=== PATIENT | female | born 1935 | race Caucasian/White ===

== ENCOUNTER → 2018-04-06 14:39 | Outpatient (CLI) | payer MEDICARE, SELFPAY ==
--- NOTE | 2018-04-06 14:41 | ECHOD_ITS ---
Reason For Study: MV DISORDER, MVP, MV REPAIR Procedure This was a 2D Doppler, Color Flow transthoracic echocardiogram. The exam was of adequate technical quality. Exam performed in department. Left Ventricle Normal LV size. Left ventricular systolic function is normal. The estimated ejection fraction is 60 %. Transmitral diastolic flow velocities suggest moderate (stage 2) diastolic dysfunction (pseudonormal pattern). No regional wall motion abnormalities noted. Right Ventricle Normal RV size. Normal systolic function. Atria The left atrium is mildly enlarged. Normal right atrium. No doppler evidence for ASD. Mitral Valve Mild diffuse mitral valve thickening. An annuloplasty ring is noted in the mitral position. MIld (1+) transvalvular insufficiency of the mitral valve. Tricuspid Valve Normal tricuspid valve. Mild tricuspid valve insufficiency. Right ventricular systolic pressure estimated to be 28 mmHg. Aortic Valve Trisinus/trileaflet aortic valve. Normal aortic valve. Pulmonic Valve The pulmonic valve is not well visualized. Mild (1+) pulmonic valve insufficiency. Great Vessels Normal sized aortic root. Pericardium/Pleural No pericardial effusion. MMode/2D Measurements & Calculations LVIDd: 4.0 cm IVSd: 1.0 cm Ao root diam: 2.8 cm LVIDs: 2.7 cm LVPWd: 1.1 cm LA dimension: 4.1 cm RVDd: 2.8 cm FS: 34.3 % LAV(MOD-bp): 73.7 ml LA A4 area: 21.9 cm2 RA A4 area: 14.0 cm2 LAV(MOD-bp) Indexed: 40.0 ml/m2 LAV(MOD-sp2): 67.2 ml LAV(MOD-sp4): 73.9 ml Time Measurements MV dec time: 0.41 sec Doppler Measurements & Calculations MV E max vito: 134.8 cm/sec Lat Peak E' Vito: 10.4 cm/sec Med Peak E' Vito: 8.3 cm/sec MV A max vito: 74.1 cm/sec E/E' lat: 13.0 E/E' med: 16.3 MV E/A: 1.8 MV V2 max: 136.0 cm/sec MV P1/2t max vito: 130.4 cm/sec Ao V2 max: 142.6 cm/sec MV max P.4 mmHg Ao max P.1 mmHg MV V2 mean: 72.3 cm/sec MV mean P.4 mmHg MV V2 VTI: 43.3 cm LV V1 max: 77.9 cm/sec PA V2 max: 83.8 cm/sec PI dec slope: 142.4 cm/sec2 LV V1 max P.4 mmHg TR max vito: 246.9 cm/sec TR max P.6 mmHg Interpretation Summary Left ventricular systolic function is normal. The estimated ejection fraction is 60 %. The left atrium is mildly enlarged. An annuloplasty ring is noted in the mitral position. Mild diffuse mitral valve thickening. MIld (1+) transvalvular insufficiency of the mitral valve. Mild tricuspid valve insufficiency. Mild (1+) pulmonic valve insufficiency. Right ventricular systolic pressure estimated to be 28 mmHg. Transmitral diastolic flow velocities suggest diastolic dysfunction (pseudonormal pattern). Ordering Physician: Terence Kim Referring Physician: Kenyetta Linares Performed By: Lucretia Foss RDCS, RVT
== END ==
PROVIDERS: Family Provider Internal Medicine; PCP Internal Medicine; Visit Provider Internal Medicine Cardiovascular Disease
DX: Z98.890 Other specified postprocedural states (principal)
CPT/HCPCS: 93306

== ENCOUNTER → 2018-07-27 12:13 | Outpatient (CLI) | payer MEDICARE, SELFPAY ==
--- NOTE | 2018-07-27 12:14 | BI_ITS ---
MAMMOGRAPHY - BILATERAL SCREENING REASON FOR EXAM: Female, 83 years old. Routine annual screening examination. PERTINENT HISTORY: Sister with breast cancer. Remote right and left stereotactic breast biopsies. TECHNIQUE: Digital bilateral breast mitzi (3D mammographic acquisition) in the CC and MLO projections. 2-D mediolateral oblique (MLO) and craniocaudad (CC) views of both breasts were obtained. CAD: Full Field Digital Mammography with Computer Added Detection was performed. COMPARISON: Comparison is made with prior study dated July 24, 2017 and July 23, 2016. FINDINGS: Breast Composition: There are scattered areas of fibroglandular density. There are no dominant masses or suspicious calcifications. Stable small benign-appearing bilateral axillary lymph nodes. A tissue clip marker is seen in the mid retroareolar region of the left breast as well as in the mid deep portion of the right breast. No other significant abnormalities are identified. There has been no significant change since the prior study. BI/SCREENING MAMM (CAD), BILAT IMPRESSION: Stable bilateral screening mammogram. Yearly follow-up mammogram recommended. (A) ASSESSMENT CATEGORY: BIRADS Category 2: Benign. A letter regarding these results will be sent to the patient by the facility within 30 days. Approximately 10% of breast cancers are not detected by mammography. A normal mammogram should not delay biopsy of a clinically suspicious abnormality. [id number] Electronically Signed: Adrián Devries MD at 14:14 EDT Tel [phone], Service support ,
--- NOTE | 2018-07-27 12:20 | BD_ITS ---
STUDY: DUAL ENERGY X-RAY ABSORPTIOMETRY / DXA REASON FOR EXAM: Female, 83 years old. The patient is postmenopausal. Loss of height. TECHNIQUE: Bone Mineral Density (BMD) measurements of lumbar spine and bilateral hips were obtained. COMPARISON: Comparison is made with prior study dated February 27, 2015. FINDINGS: Lumbar Spine (L1-L4): g/cm2 (1.060) / T-score (-1.0) / Z-score (0.9) Findings are suggestive of osteopenia with a low fracture risk. Left Femur Total: g/cm2 (0.813) / T-score (-1.5) / Z-score (0.5) Left Femoral Neck: g/cm2 (0.810) / T-score (-1.6) / Z-score (0.6) Right Femur Total: g/cm2 (0.797) / T-score (-1.7) / Z-score (0.4) Right Femoral Neck: g/cm2 (0.756) / T-score (-2.0) / Z-score (0.2) The T-Scores on the most recent prior examination were: Lumbar Spine (L1-L4): There has been worsening of bone density since the previous examination. Left Femur Total: which represents a worsening of 5.2%. Right Femur Total: which represents a worsening of 6.6%. BD/Dexa Bone Density Study IMPRESSION: The patient is considered osteopenic as outlined below according to World Th[place] Organization (WHO) criteria with a moderate fracture risk. There has been worsening of bone density since the previous examination. Reference Information: The T-score is the number of standard deviations above or below the standard which is normal for young adults at their peak bone mineral density. The World Health Organization (WHO) interprets the T-scores as follows: Above -1 Normal bone density Between -1 and -2.5 Osteopenia Equal to / or below -2.5 Osteoporosis As a practical clinical guideline, osteopenia may be graded as follows: Mild -1 through -1.5 Moderate -1.6 through -2.0 Severe -2.1 through -2.4 The Z-score is the number of standard deviations above or below age-matched controls. A Z-score of less than -1.5 would be considered abnormal. References: 1. NIH Osteoporosis and Related Bone Diseases http://www.osteo.org 2. International Society for Clinical Densitometry http://www.iscd.org 3. National Osteoporosis Foundation http://www.nof.org Electronically Signed: Adrián Devries MD at 15:54 EDT Tel [phone], Service support ,
== END ==
PROVIDERS: Family Provider Internal Medicine; PCP Internal Medicine; Referring Provider Internal Medicine; Visit Provider Internal Medicine
DX: Z12.31 Encounter for screening mammogram for malignant neoplasm of breast (principal); Z78.0 Asymptomatic menopausal state
CPT/HCPCS: 77063; 77067; 77080

== ENCOUNTER → 2019-05-24 06:39 | Outpatient (CLI) | payer MEDICARE, SELFPAY ==
[2019-04-18 15:02] VITALS: BMI 28.4
--- NOTE | 2019-05-24 09:28 | STRESSREP ---
Stress Test Report Date: 05-24-19 Procedure: Exercise tolerance test/imaging study Indications: Shortness of breath/dyspnea; fatigue; status post mitral valve repair; history of atrial fibrillation Consent: Per the patient Procedure: The patient exercised on a Baldomero protocol for 6 minutes completing Stage II achieving a peak heart rate of 126 bpm (91 % predicted maximal heart rate) with a peak blood pressure 186/72 mmHg and a peak MET capacity of 7 METs. The baseline ECG demonstrated normal sinus rhythm. The peak exercise ECG demonstrated no obvious ECG changes. There were occasional PVCs pretest, during exercise, and recovery-multi form; repetitive PACs (atrial couplets/quadruplets) during exercise and occasional PACs during recovery. The functional capacity was considered good. There was no complaint of chest discomfort during exercise or recovery. The examination was discontinued secondary to leg discomfort and dyspnea. Impression: 1. Technically adequate (percent predicted maximal heart rate greater than 85%) exercise tolerance test 2. Peak exercise ECG demonstrated no obvious ECG changes 3. There were occasional PVCs pretest, during exercise, and recovery-multiform; repetitive PACs (atrial couplets/quadruplets) during exercise and occasional PACs during recovery 4. Nuclear images pending Myocardial perfusion imaging study: Technique: The patient was injected with 11.6 mCi of technetium 99m Cardiolite and subsequently rest SPECT Cardiolite nuclear imaging was obtained in the horizontal long, vertical long, and short axis views. The patient exercised on a Baldomero protocol for 6 minutes completing Stage II achieving a peak heart rate of 126 bpm (91 % predicted maximal heart rate) with a peak blood pressure 186/72 mmHg and a peak MET capacity of 7 METs. The patient was injected with 33.3 mCi of technetium 99m Cardiolite and subsequently stress SPECT Cardiolite nuclear imaging was obtained in the horizontal long, vertical long, and short axis views. A gated Cardiolite study at peak stress was obtained. Interpretation: Rest and stress SPECT Cardiolite nuclear imaging status post realignment, normalization, and attenuation correction, demonstrates the appearance of relative uniform tracer uptake and myocardial perfusion appearing within normal limits. There is end systolic thickening and brightening. The gated Cardiolite study demonstrates myocardial thickening and inward wall motion. The reported LVEF is 71 %. Impression: 1. Rest and stress SPECT Cardiolite nuclear imaging demonstrate relative uniform tracer uptake and myocardial perfusion appearing within normal limits. 2. The gated Cardiolite study reports an LVEF of 71 %. This note was generated with [employer] software. It may contain incorrect words, spelling, and punctuation that were not noted in checking the note before signing.
== END ==
PROVIDERS: Family Provider Internal Medicine; PCP Internal Medicine; Referring Provider Internal Medicine Cardiovascular Disease; Visit Provider Internal Medicine Cardiovascular Disease
DX: R06.02 Shortness of breath (principal); I97.89 Other postprocedural complications and disorders of the circulatory system, not elsewhere classified; I48.91 Unspecified atrial fibrillation; R53.83 Other fatigue; I49.49 Other premature depolarization; E78.5 Hyperlipidemia, unspecified; I10 Essential (primary) hypertension; Z98.890 Other specified postprocedural states; I49.3 Ventricular premature depolarization
CPT/HCPCS: 78452; 93017; A9500; A4216

== ENCOUNTER → 2020-06-26 07:44 | Outpatient (CLI) | payer MEDICARE, SELFPAY ==
[2020-06-08 10:15] VITALS: BMI 28.6
--- NOTE | 2020-06-26 07:45 | ECHOD_ITS ---
Reason For Study: s/p MV Repair Procedure This was a 2D Doppler, Color Flow transthoracic echocardiogram. The exam was of adequate technical quality. Exam performed in department. Left Ventricle Normal LV size. Left ventricular systolic function is normal. The estimated ejection fraction is 60 %. No regional wall motion abnormalities noted. Right Ventricle Normal RV size. Normal systolic function. Atria The left atrium is mildly enlarged. Normal right atrium. No doppler evidence for ASD. Mitral Valve Mild diffuse mitral valve thickening. An annuloplasty ring is noted in the mitral position. MIld (1+) transvalvular insufficiency of the mitral valve. Tricuspid Valve Normal tricuspid valve. Trivial tricuspid valve insufficiency. Right ventricular systolic pressure estimated to be 28 mmHg. Aortic Valve Trisinus/trileaflet aortic valve. Mild focal aortic valve calcification. Pulmonic Valve The pulmonic valve is not well visualized. Mild (1+) pulmonic valve insufficiency. Great Vessels The aortic root is not well visualized. Pericardium/Pleural No pericardial effusion. MMode/2D Measurements & Calculations LVIDd: 4.0 cm IVSd: 1.1 cm LA dimension: 4.1 cm LVIDs: 2.6 cm LVPWd: 1.0 cm FS: 34.9 % LAV(MOD-bp): 51.5 ml LA A4 area: 16.8 cm2 RA A4 area: 15.4 cm2 LAV(MOD-bp) Indexed: 27.2 ml/m2 LAV(MOD-sp2): 41.1 ml LAV(MOD-sp4): 52.9 ml Time Measurements MV dec time: 0.51 sec Doppler Measurements & Calculations MV E max vito: 129.4 cm/sec Lat Peak E' Vito: 7.8 cm/sec Med Peak E' Vito: 8.8 cm/sec MV A max vito: 78.5 cm/sec E/E' lat: 16.6 E/E' med: 14.7 MV E/A: 1.6 MV V2 max: 138.7 cm/sec MV P1/2t max vito: 140.6 cm/sec Ao V2 max: 124.6 cm/sec MV max P.7 mmHg MV P1/2t: 121.9 msec Ao max P.2 mmHg MV V2 mean: 81.7 cm/sec MV dec slope: 338.0 cm/sec2 MV mean P.0 mmHg MVA(P1/2t): 1.8 cm2 MV V2 VTI: 41.1 cm LV V1 max: 66.9 cm/sec MR max vito: 525.1 cm/sec PA V2 max: 82.8 cm/sec LV V1 max P.8 mmHg MR max P.3 mmHg MR mean vito: 450.1 cm/sec MR mean P.2 mmHg MR VTI: 212.6 cm PI end-d vito: 135.3 cm/sec TR max vito: 248.9 cm/sec TR max P.8 mmHg Interpretation Summary Left ventricular systolic function is normal. The estimated ejection fraction is 60 %. The left atrium is mildly enlarged. An annuloplasty ring is noted in the mitral position. Mild diffuse mitral valve thickening. MIld (1+) transvalvular insufficiency of the mitral valve. Trivial tricuspid valve insufficiency. Mild focal aortic valve calcification. Mild (1+) pulmonic valve insufficiency. Right ventricular systolic pressure estimated to be 28 mmHg. Transmitral diastolic flow velocities suggest diastolic dysfunction (pseudonormal pattern). Ordering Physician: Terence Kim Referring Physician: Kenyetta Linares M.D. Performed By: Isaac Diaz RCS
== END ==
PROVIDERS: PCP Internal Medicine; Referring Provider Internal Medicine Cardiovascular Disease; Visit Provider Internal Medicine Cardiovascular Disease
DX: Z95.2 Presence of prosthetic heart valve (principal)
CPT/HCPCS: 93306

== ENCOUNTER 2021-07-22 01:36 | Emergency (ER) | payer MEDICARE, SELFPAY ==
[2021-07-22 01:37] VITALS: BP 158/92; PULSE 66; RESP 18; TEMP 36.3; O2SAT 97; BMI 27.4
--- NOTE | 2021-07-22 02:10 | EDS_ITS ---
HPI History of Present Illness Chief Complaint: Allergic Reaction Informant: patient Narrative Narrative: 86-year-old female states that at approximately 11:00 yesterday she was stung by a bee on her right hand. She notes some swelling and erythema on the dorsum of her right hand. She denies any systemic symptoms. No home treatment other than ice which she states made her hand hurt more. She states that tonight it is painful for her. No Tylenol or Motrin at home. [facility] Medical History (Updated 07/22/21 @ 02:[address] Ashish Morfin DO) Chronic fatigue syndrome Essential hypertension History of mitral valve disorder History of pleural effusion Hyperlipidemia Hypertension Non-rheumatic mitral regurgitation Nonrheumatic mitral (valve) prolapse Paroxysmal atrial tachycardia Postoperative atrial fibrillation Home Medications aspirin 81 mg PO DAILY@0800 05/30/16 [History Last Taken 08/12/16] losartan 50 mg tablet 50 mg PO BID #180 tab 11/01/20 [Rx Last Taken Unknown] amlodipine 2.5 mg tablet 2.5 mg PO DAILY #90 tab 12/10/20 [Rx Last Taken Unknown] mecobalamin (vitamin B12) 10,000 mcg solution for injection mcg IM MONTHLY ea 12/10/20 [History Last Taken Unknown] metoprolol tartrate 50 mg tablet 50 mg PO BID #180 tab 12/10/20 [Rx Last Taken Unknown] amoxicillin 500 mg tablet 2,000 mg PO .COMPLEX #4 tab 04/10/21 [Rx Last Taken Unknown] Allergy/AdvReac Type Severity Reaction Status Date / Time Latex, Natural Rubber Allergy Hives Verified 12/10/20 10:03 Sulfa (Sulfonamide Allergy Hives Verified 12/10/20 10:03 Antibiotics) Family History Brother CAD (coronary artery disease) Hx of CABG Brother History of permanent cardiac pacemaker placement Surgical History History of mitral valve repair (~02/07/11) Social History Smoking Status: Never smoker alcohol intake: never substance use type: does not use ROS ROS ED Constitutional Constitutional ED: Denies chills or weight loss Eyes Eyes: Denies change in vision or diplopia ENT ENT ED: Denies ear pain, rhinorrhea or sore throat Cardiovascular Cardiovascular: Denies chest pain, orthopnea, palpitations or racing heartbeat Respiratory/Chest Respiratory/Chest: Denies cough, dyspnea or orthopnea Gastrointestinal Gastrointestinal: Denies abdominal pain, diarrhea, nausea or vomiting Genitourinary Genitourinary ED: Denies dysuria, hematuria or urinary frequency Musculoskeletal Musculoskeletal: Denies arthralgias or myalgias Integumentary Reports rash and other; Denies abscess Neurologic Neurologic: Denies headache(s) or weakness Psychiatric Psychiatric: Denies anxiety, depression, suicidal ideation or suicidal thoughts Endocrine Endocrinology: Denies polydipsia, polyphagia or polyuria Allergic/Immunologic Allergic/Immunologic ED: Denies mouth swelling, tongue swelling or urticaria EXAM Physical Exam Const Vital Signs: 07/22/21 01:37 Temperature 97.4 F L Temperature Source Temporal Pulse Rate 66 Respiratory Rate 18 Blood Pressure 158/92 H Blood Pressure Mean 114 Pulse Ox 97 Oxygen Delivery Method Room Air Positive well nourished and well developed General Appearance ED: well developed HEENT Reports normocephalic, head/scalp atraumatic and moist mucous membranes Eyes PERRL and EOMs intact bilaterally Neck no lymphadenopathy, supple and no JVD Resp normal respiratory effort and clear to auscultation bilaterally Cardio regular rate, regular rhythm and no murmurs GI normal to inspection, nondistended, normoactive bowel sounds and non-tender Palpation: soft Back/Spine no CVA tenderness and normal ROM Extremity normal to inspection General Extremety ED: Negative for edema General Extremity: Negative for edema Neuro oriented x3 and CN's II-XII intact bilaterally Sensorium / Orientation: alert Motor Exam: strength 5/5 throughout Psych mental status grossly normal Mood & Affect: Negative for depressed or tearful Skin no wounds Skin Narrative: Located on the dorsum of the right hand along the third and four th MCP joints and onto the associated fingers is some area of mild erythema and mild swelling. No evidence of secondary infection at this time it appears to be more of a local reaction MDM MDM MDM Narrative Medical decision making narrative: I will give the patient Benadryl and Pepcid also give her Motrin for pain. Recommend continued Benadryl and Pepcid at home. Patient was specifically advised that tomorrow her hand may be more swollen and red than tonight. Discharge Plan Triage Chief Complaint: Allergic Reaction ED Provider: Ashish Morfin Dx/Rx/DC Orders Clinical Impression: Local reaction to bee sting Instructions: ED Insect Sting, Local Reaction Prescriptions: No Action mecobalamin (vitamin B12) 10,000 mcg recon soln IM MONTHLY RF: 0 amlodipine 2.5 mg tablet 2.5 mg PO DAILY Qty: 90 RF: 3 metoprolol tartrate 50 mg tablet 50 mg PO BID Qty: 180 RF: 4 aspirin 81 MG tablet,chewable 81 mg PO DAILY@0800 RF: 0 losartan 50 mg tablet 50 mg PO BID Qty: 180 RF: 3 amoxicillin 500 mg tablet 2,000 mg PO .COMPLEX Qty: 4 RF: 4 Primary Care Provider: Kenyetta Linares Referrals: Kenyetta Linares DO [Primary Care Provider] - As Needed Activity Restrictions/Additional Instructions: I would recommend Benadryl 25 mg every 6-8 hours and Pepcid 20 mg twice a day until symptoms have resolved you may also use a topical Benadryl cream if you find that the oral medication is causing drowsiness Disposition Disposition: Home, Self Care
[2021-07-22] MEDS: Ibuprofen 600 MG Tablet PO (02:24)
[2021-07-22] MEDS: DiphenhydrAMINE 25 MG Capsule PO (02:24)
[2021-07-22] MEDS: Famotidine 20 MG Tablet PO (02:24)
== END 2021-07-22 02:38 | disposition home or self-care (01) ==
LOC: ED 02:33
PROVIDERS: Emergency Provider Emergency Medicine; PCP Internal Medicine
DX: T63.441A Toxic effect of venom of bees, accidental (unintentional), initial encounter (principal); E78.5 Hyperlipidemia, unspecified; I10 Essential (primary) hypertension; I34.1 Nonrheumatic mitral (valve) prolapse; I48.91 Unspecified atrial fibrillation; R53.82 Chronic fatigue, unspecified; I47.1 Supraventricular tachycardia; Z79.82 Long term (current) use of aspirin
CPT/HCPCS: 99283

== ENCOUNTER → 2021-10-11 12:33 | Outpatient (CLI) | payer MEDICARE, SELFPAY | PROVIDERS: PCP Internal Medicine; Referring Provider Urology; Visit Provider Urology | DX: N39.0 Urinary tract infection, site not specified (principal) | CPT/HCPCS: 87077; 87086; 87088; 87186 ==

== ENCOUNTER 2021-10-21 15:34 | Observation (INO) | payer MEDICARE, SELFPAY ==
[2021-10-14 10:45] LABS: Hematocrit 42.1 % (37-47); Hemoglobin 14.3 g/dL (12.0-15.0); Mean Corpuscular Hgb 32.9 pg (27.0-32.0); Platelet Count 247 K/mm3 (150-450); RBC Distribution Width CV 12.9 % (11.6-14.6); RBC Distribution Width SD 46.2 fl (35.1-43.9); Red Blood Count 4.34 M/mm3 (4.2-5.4); White Blood Count 7.3 K/mm3 (4.4-11.0)
[2021-10-14 10:59] LABS: Anion Gap 7 (5-15); BUN 15 mg/dL (7-18); BUN/Creat Ratio 16.8 RATIO (10-20); Calcium,Total 9.4 mg/dL (8.5-10.1); Chloride 103 mmol/L (98-107); EST Glomerular Filtration Rate 64 mL/min (>60); Est Glom Filt Rate - Afr Amer 77 mL/min (>60); Glucose 96 mg/dL (74-106); Sodium Level 135 mmol/L (136-145)
[2021-10-21] VITALS (11 sets, daily range): BP systolic 122–179; BP diastolic 63–89; PULSE 59–83; RESP 16–18; TEMP 35.7–36.7; O2SAT 96–100; BMI 26.9
[2021-10-21] MEDS: Lactated Ringers 1,000 ML 15 ML IV ×2 (11:22→13:01)
--- NOTE | 2021-10-21 11:29 | PCM.OPRPT ---
Problems Associated Problem List Diagnoses (1) Cystocele, midline: (2) Vaginal vault prolapse: Report of Operation Date of Procedure: 10/21/21 Pre-Operative Diagnosis: cystocele, vaginal vault prolapse Post-Operative Diagnosis: same and rectocele Surgery/Procedure Performed:: anterior repair with Dermis, bilateral sacrospinous ligament fixation, posterior repair with dermis, cystoscopy with bilateral ureteral catheterization Surgeon: Christine Morocho Type of Anesthesia: General Estimated Blood Loss (mL): 35cc Description of Procedure: The patient is an 86-year-old female with a cystocele and vaginal vault prolapse. She presents for definitive surgical intervention. She has undergone office cystoscopy and urodynamics in preparation. Informed consent was obtained. The patient was taken to the operating room and placed on the operating room table. Anesthesia monitored the head, neck, airway, IV access and vital signs throughout the case. Once anesthesia was appropriate ministered the patient was placed into dorsal lithotomy Trendelenburg position and was prepped and draped in usual sterile fashion. A 16 Hungarian De Anda catheter was inserted to straight drain and the bladder was emptied. The anterior vaginal wall was isolated and injected submucosally with 1% lidocaine with epinephrine for hydrostatic dissection and hemostatic control. Sharp and blunt dissection was performed until the ischial spines were palpable on both sides the sacrospinous ligaments were freed from surrounding tissues. The Capio device was then used to pass an Ethibond suture through each sacrospinous ligament. It was then brought through the dermis which had been trimmed to length. At this time it was brought through the vaginal mucosa at the apex. The dermis was then sutured into position near the bladder neck and laterally the white line using interrupted 2-0 Vicryl suture. The incision was then closed using running interlocking 2-0 Vicryl. At this time the Ethibond sutures were tied into position and the prolapse was reduced. A distal posterior defect was identified. The submucosa in this area was injected with lidocaine with epinephrine. An incision was made in the mucosa and sharp and blunt dissection was performed until the bowel was pushed away from the mucosa. There was no significant remaining fascial tissue in this area. A piece of leftover dermis was then cut to length and sutured to the rectovaginal fascia on each side covering the defect. The mucosa was then closed over the dermis with running interlocking 2-0 Vicryl. The De Anda catheter was then removed and the cystoscope was positioned into the urinary bladder. The mucosa was visualized in its entirety. There were no areas of hemorrhage or foreign body identified. Bilateral ureteral orifices were seen and each was intubated with a 5 Hungarian whistle-tip catheter without difficulty. There was no evidence of injury or obstruction either side. The cystoscope was then removed and the De Anda catheter was replaced with 10 cc in the balloon. The vagina was packed with vaginal packing and cream. The patient was then awakened and taken the recovery room in good condition. There were no complications during this procedure. Grafts/Implants Used: Dermis Complications None Admit VTE Documentation VTE Present on Admission: Yes VTE Mechan Device Prophylaxis: SCD's VTE Pharm Prophylaxis ordered?: Yes
[2021-10-21] MEDS: Lidocaine 1% /Epi 1:100 (20ml) 20 ML Vial (12:59)
[2021-10-21] MEDS: Lubricating Jelly 60 GM Tube 30 GM (14:01)
--- NOTE | 2021-10-21 17:17 | PCS.PANDOC ---
PANDEMIC DOCUMENTATION INITIATED: Date: 06/10/2021 Time: 190
[2021-10-21] MEDS: Enoxaparin 40 MG/0.4 ML Syringe SC (18:21)
[2021-10-21] MEDS: Dextrose 5%-Lactated Ringers 1,000 ML 100 ML IV (20:48)
[2021-10-21] MEDS: Losartan Potassium 50 MG Tablet PO (20:55)
[2021-10-21] MEDS: Cephalexin 500 MG Capsule PO (20:55)
[2021-10-21] MEDS: Docusate Sodium 100 MG Capsule PO (20:55)
[2021-10-21] MEDS: Metoprolol Tartrate 50 MG Tablet PO (20:56)
[2021-10-22 00:43] VITALS: BP 140/80; PULSE 76; RESP 18; TEMP 36.8; O2SAT 96
[2021-10-22] MEDS: 0.9% Saline Lock 10 ML Syringe IV (00:50)
[2021-10-22] MEDS: Ondansetron 4 MG/2 ML Vial IV (00:50)
[2021-10-22 04:49] VITALS: BP 140/61; PULSE 75; RESP 18; TEMP 36.7; O2SAT 99
[2021-10-22] MEDS: Dextrose 5%-Lactated Ringers 1,000 ML 100 ML IV (04:53)
--- NOTE | 2021-10-22 08:14 | PCM.PROGNOTE ---
Subjective Subjective Doing well. Soup for dinner, out of bed, pain controlled. Objective Data Objective Data Vital Signs: Vital Signs Temp Pulse Resp BP Pulse Ox 98.1 F 75 18 140/61 H 99 10/22/21 04:49 10/22/21 04:49 10/22/21 04:49 10/22/21 04:49 10/22/21 04:49 Oxygen Delivery Method Room Air Weight: 75.6 kg Body Mass Index (BMI) 26.9 Intake & Output: Intake and Output for Last 24 Hours 10/20/21 10/21/21 10/22/21 23:59 23:59 23:59 Intake Total 1530.75 / 1780.75 1308.33 / 1308.33 Output Total 650 / 1000 1525 / 1525 Balance 880.75 / 780.75 -216.67 / -216.67 Lab / Micro Data Result Diagrams: 10/14/21 10:00 10/14/21 10:00 Physical Exam Const alert, oriented x3 and no apparent distress HEENT normocephalic, head/scalp atraumatic and external ears normal Nose: external nose normal Mouth: lips normal and tongue normal GI soft to palpation, non-tender and non-distended Narrative: urine clear, coughlin draining Skin no rashes or lesions noted Neuro oriented x3, CN's II-XII intact bilaterally and moves all extremities Assessment & Plan Assessment/Plan (1) Vaginal vault prolapse: (2) Cystocele, midline: PLAN: trial of void. home later today
[2021-10-22 08:23] VITALS: PULSE 75
[2021-10-22] MEDS: Docusate Sodium 100 MG Capsule PO (08:23)
[2021-10-22] MEDS: Losartan Potassium 50 MG Tablet PO (08:23)
[2021-10-22] MEDS: amLODIPine 5 MG Tablet PO (08:23)
[2021-10-22] MEDS: Cephalexin 500 MG Capsule PO (08:23)
[2021-10-22] MEDS: Aspirin 81 MG TAB.CHEW PO (08:23)
[2021-10-22] MEDS: Metoprolol Tartrate 50 MG Tablet PO (08:23)
[2021-10-22] MEDS: Enoxaparin 40 MG/0.4 ML Syringe SC (08:23)
[2021-10-22 12:22] VITALS: BP 149/55; PULSE 65; RESP 16; TEMP 36.8; O2SAT 99
--- NOTE | 2021-10-22 13:04 | PCM.DC ---
Discharge Instructions Diet Discharge Diet: No restrictions Activity Discharge Activity: May Not Drive and May Shower Lifting Restrictions: 5 pounds Additional Activity Instructions:: no sexual activity, swimming or hot tubs Dressing / Incision Call your doctor if your incision/area has: Continuous Slow Oozing, Sudden Increased Bleeding, Increased Pain/ Swelling and Foul Smelling Discharge Call your doctor if you observe: Fever of 101 or Higher, Inability to urinate and Inability to have a bowel movement Follow Up Care Please Follow Up With: Christine Morocho MD When: call the office for appt Test Results: Test results from this visit will be discussed in further detail at your follow-up appointment, if applicable. Discharge Plan Admission Admit Date/Time: 10/21/21 15:34 Attending Provider: Christine Morocho Primary Care Provider: Kenyetta Linares Discharge Orders/Prescriptions Prescriptions: New oxycodone-acetaminophen [Percocet] 5-325 mg tablet 1 tab PO Q8H PRN (Reason: pain) 7 Days Qty: 20 RF: 0 Continued mecobalamin (vitamin B12) 10,000 mcg recon soln 10,000 mcg IM MONTHLY RF: 0 amlodipine 5 mg tablet 5 mg PO DAILY RF: 0 aspirin 81 MG tablet,chewable 81 mg PO DAILY@0800 RF: 0 multivitamin Tablet 1 tab PO DAILY RF: 0 cholecalciferol (vitamin D3) [Vitamin D3] 25 mcg (1,000 unit) Capsule 25 mcg PO DAILY RF: 0 losartan [Cozaar] 50 mg tablet 50 mg PO BID RF: 0 metoprolol tartrate [Lopressor] 50 mg tablet 50 mg PO BID RF: 0 Referrals / Follow Up: Kenyetta Linares DO [Primary Care Provider] - Disposition Disposition (needs filled in before D/C Order can be placed): Home, Self Care
== END 2021-10-22 15:14 | disposition home or self-care (01) ==
LOC: MS2 10-22 10:36 → SDC 10-22 15:46
PROVIDERS: Admitting Provider Urology; PCP Internal Medicine; Referring Provider Urology; Visit Provider Urology
PROC: (CPT 57260; principal; 2021-10-21 11:55)
DX: N81.11 Cystocele, midline (principal); N81.6 Rectocele; Z79.899 Other long term (current) drug therapy; Z79.82 Long term (current) use of aspirin; K21.9 Gastro-esophageal reflux disease without esophagitis; I10 Essential (primary) hypertension; G25.81 Restless legs syndrome
CPT/HCPCS: 00942; 57260; 57282; 36415; 80048; 85027; 96361; 96372; 96374; 99218; J7120; A4216; C1758; G0378; J2405

== ENCOUNTER → 2022-02-25 | Outpatient (CLI) | payer MEDICARE, SELFPAY ==
--- NOTE | 2022-02-25 15:23 | BI_ITS ---
MAMMOGRAPHY - BILATERAL SCREENING REASON FOR EXAM: Female, 87 years old. Routine annual screening examination. PERTINENT HISTORY: Sister with breast cancer. History of prior bilateral stereotactic breast biopsy. TECHNIQUE: Digital bilateral breast viviana (3D mammographic acquisition) in the CC and MLO projections. 2-D mediolateral oblique (MLO) and craniocaudad (CC) views of both breasts were obtained. CAD: Full Field Digital Mammography with Computer Added Detection was performed. COMPARISON: Comparison is made with prior study dated 07/27/2018 and 07/24/2017. FINDINGS: Breast Composition: There are scattered areas of fibroglandular density. There are no dominant masses or suspicious calcifications. Stable small benign-appearing bilateral axillary lymph nodes. A tissue clip marker is once again seen in the mid retroareolar region of the left breast as well as in the mid deep portion of the right breast. No other significant abnormalities are identified. There has been no significant change since the prior study. BI/SCRN MAMM (CAD)W/VIVIANA BILAT IMPRESSION: Stable bilateral screening mammogram. Yearly follow-up mammogram recommended. (A) ASSESSMENT CATEGORY: BIRADS Category 2: Benign. A letter regarding these results will be sent to the patient by the facility within 30 days. Approximately 10% of breast cancers are not detected by mammography. A normal mammogram should not delay biopsy of a clinically suspicious abnormality. [id number] Electronically Signed: Adrián Devries MD at 8:26 EDT ,
--- NOTE | 2022-02-25 15:28 | BD_ITS ---
STUDY: DUAL ENERGY X-RAY ABSORPTIOMETRY / DXA REASON FOR EXAM: Female, 87 years old. [id number]. Patient is postmenopausal. TECHNIQUE: Bone Mineral Density (BMD) measurements of lumbar spine and bilateral hips were obtained. COMPARISON: Comparison is made with prior study 07/27/2018. FINDINGS: Lumbar Spine (L1-L4): g/cm2 (0.903) / T-score (-1.3) / Z-score (1.6) Findings are suggestive of osteopenia with a low fracture risk. Left Femur Total: g/cm2 (0.754) / T-score (-1.5) / Z-score (0.8) Left Femoral Neck: g/cm2 (0.659) / T-score (-1.7) / Z-score (0.8) Right Femur Total: g/cm2 (0.732) / T-score (-1.7) / Z-score (0.6) Right Femoral Neck: g/cm2 (0.687) / T-score (-1.5) / Z-score (1.1) The T-Scores on the most recent prior examination were: Lumbar Spine (L1-L4): There has been worsening of bone density since the previous examination. Left Femur Total: which represents an improvement of 0.1%. Right Femur Total: which represents a worsening of 0.6%. BD/Dexa Bone Density Study IMPRESSION: The patient is considered osteopenic as outlined below according to World Thuan Organization (WHO) criteria with a moderate fracture risk. There has been worsening of bone density since the previous examination. Reference Information: The T-score is the number of standard deviations above or below the standard which is normal for young adults at their peak bone mineral density. The World Health Organization (WHO) interprets the T-scores as follows: Above -1 Normal bone density Between -1 and -2.5 Osteopenia Equal to / or below -2.5 Osteoporosis As a practical clinical guideline, osteopenia may be graded as follows: Mild -1 through -1.5 Moderate -1.6 through -2.0 Severe -2.1 through -2.4 The Z-score is the number of standard deviations above or below age-matched controls. A Z-score of less than -1.5 would be considered abnormal. References: 1. NIH Osteoporosis and Related Bone Diseases www osteo.org 2. International Society for Clinical Densitometry www iscd.org 3. National Osteoporosis Foundation www nof.org Electronically Signed: Adrián Devries MD at 15:20 EDT ,
== END | disposition home or self-care (01) ==
LOC: OPBD 15:20
PROVIDERS: PCP Internal Medicine; Referring Provider Internal Medicine; Visit Provider Internal Medicine
DX: Z12.31 Encounter for screening mammogram for malignant neoplasm of breast (principal); Z78.0 Asymptomatic menopausal state
CPT/HCPCS: 77063; 77067; 77080

== ENCOUNTER → 2022-03-04 | Outpatient (CLI) | payer MEDICARE, SELFPAY ==
[2022-03-04 17:58] LABS: Absolute Lymphocyte Count 1.72 X10^3/uL (0.83-4.51); Absolute Neutrophil Count 4.8 X10^3/uL (2.0-7.7); Basophil# 0.04 X10^3/uL; Basophil% 0.5 % (0-1); Eosinophil# 0.37 X10^3/uL; Eosinophils% 4.9 % (0-5); Hematocrit 40.4 % (37-47); Hemoglobin 13.4 g/dL (12.0-15.0); Lymphocyte # 1.72 X10^3/ul (0.83-4.51); Mean Corp Hgb Conc 33.2 g/dL (32-36); Mean Corpuscular Hgb 31.6 pg (27.0-32.0); Mean Corpuscular Volume 95.3 fL (81-99); Mean Platelet Vol. 10.4 fl (6.2-12.0); Monocyte# 0.52 X10^3/uL; NRBC Flagged by Analyzer 0 % (0-5); Neutrophil % 64.2 % (47-70); Platelet Count 245 K/mm3 (150-450); RBC Distribution Width CV 12.6 % (11.6-14.6); RBC Distribution Width SD 44.2 fl (35.1-43.9); Red Blood Count 4.24 M/mm3 (4.2-5.4); White Blood Count 7.5 K/mm3 (4.4-11.0)
[2022-03-04 18:16] LABS: Vitamin D,25 Hydroxy 52.7 ng/mL
[2022-03-04 18:27] LABS: Ferritin 40 ng/mL (8-252); T4 Free Direct 1.18 ng/dL (0.76-1.46); Thyroid Stim Hormone (TSH) 2.08 uIU/mL (0.358-3.74)
[2022-03-07 18:59] LABS: Vitamin D 1,25-Dihydroxy 64.6 pg/mL (19.9-79.3)
[2022-03-10 16:35] LABS: Thyroid Peroxidase AB < 8 IU/mL (0-34); Zinc, Plasma or Serum 73 ug/dL (44-115)
== END | disposition home or self-care (01) ==
LOC: MTLAB 15:05
PROVIDERS: PCP Internal Medicine; Referring Provider Dermatology; Visit Provider Dermatology
DX: L21.8 Other seborrheic dermatitis (principal); L65.9 Nonscarring hair loss, unspecified
CPT/HCPCS: 36415; 82306; 82652; 82728; 84439; 84443; 84630; 85025; 86376

== ENCOUNTER → 2022-06-02 | Outpatient (CLI) | payer MEDICARE, SELFPAY | END | disposition home or self-care (01) | PROVIDERS: PCP Internal Medicine; Referring Provider Internal Medicine; Visit Provider Internal Medicine | DX: I49.9 Cardiac arrhythmia, unspecified (principal) | CPT/HCPCS: 93225; 93226 ==

== ENCOUNTER → 2022-06-03 | Outpatient (CLI) | payer MEDICARE, SELFPAY ==
--- NOTE | 2022-06-03 09:49 | ECHOD_ITS ---
Reason For Study: S/P MV REPAIR Procedure This was a 2D Doppler, Color Flow transthoracic echocardiogram. The exam was of adequate technical quality. Exam performed in department. Left Ventricle Normal LV size. Left ventricular systolic function is normal. The estimated ejection fraction is 60 %. Post operative septal motion. Right Ventricle Normal RV size. Normal systolic function. Atria The left atrium is mildly enlarged. Normal right atrium. No doppler evidence for ASD. Mitral Valve Mild diffuse mitral valve thickening. An annuloplasty ring is noted in the mitral position. MIld (1+) transvalvular insufficiency of the mitral valve. Tricuspid Valve Normal tricuspid valve. Mild tricuspid valve insufficiency. Right ventricular systolic pressure estimated to be 38 mmHg. Aortic Valve Trisinus/trileaflet aortic valve. Mild focal aortic valve calcification. Pulmonic Valve The pulmonic valve is not well visualized. Mild (1+) pulmonic valve insufficiency. Great Vessels Normal sized aortic root. Pericardium/Pleural Trivial pericardial effusion. There are no echocardiographic indications of cardiac tamponade. MMode/2D Measurements & Calculations LVIDd: 4.0 cm IVSd: 0.68 cm Ao root diam: 3.1 cm LVIDs: 2.7 cm LVPWd: 0.82 cm RVDd: 3.2 cm FS: 33.6 % LAV(MOD-bp): 40.6 ml LVAd ap4: 24.8 cm2 SV(MOD-sp4): 42.1 ml LAV(MOD-bp) Indexed: 22.1 ml/m2 LVLd ap4: 7.1 cm LAV(MOD-sp2): 36.2 ml EDV(MOD-sp4): 69.8 ml LAV(MOD-sp4): 40.2 ml EDV(sp4-el): 73.3 ml LVAs ap4: 14.1 cm2 LVLs ap4: 6.0 cm ESV(MOD-sp4): 27.6 ml ESV(sp4-el): 27.9 ml EF(MOD-sp4): 60.4 % EF(sp4-el): 61.9 % SV(sp4-el): 45.4 ml LA A4 area: 15.5 cm2 LA dimension(2D): 4.1 cm RA A4 area: 14.1 cm2 Time Measurements MV dec time: 0.43 sec Doppler Measurements & Calculations MV E max vito: 132.3 cm/sec Lat Peak E' Vito: 8.1 cm/sec Med Peak E' Vito: 7.1 cm/sec MV A max vito: 62.3 cm/sec E/E' lat: 16.4 E/E' med: 18.7 MV E/A: 2.1 MV V2 max: 150.4 cm/sec MV P1/2t max vito: 140.8 cm/sec Ao V2 max: 140.2 cm/sec MV max P.0 mmHg MV P1/2t: 120.3 msec Ao max P.9 mmHg MV V2 mean: 85.1 cm/sec Ao V2 mean: 92.6 cm/sec MV mean P.5 mmHg MV dec slope: 342.9 cm/sec2 Ao mean P.0 mmHg MV V2 VTI: 46.0 cm MVA(P1/2t): 1.8 cm2 Ao V2 VTI: 31.6 cm LV V1 max: 77.0 cm/sec PA V2 max: 77.0 cm/sec PI end-d vito: 91.3 cm/sec LV V1 max P.4 mmHg LV V1 mean P.3 mmHg LV V1 mean: 54.2 cm/sec LV V1 VTI: 18.7 cm TR max vito: 295.3 cm/sec TR max P.9 mmHg ECHO/Echo Complete Interpretation Summary Left ventricular systolic function is normal. The estimated ejection fraction is 60 %. Post operative septal motion. The left atrium is mildly enlarged. An annuloplasty ring is noted in the mitral position. Mild diffuse mitral valve thickening. MIld (1+) transvalvular insufficiency of the mitral valve. Mild tricuspid valve insufficiency. Mild focal aortic valve calcification. Mild (1+) pulmonic valve insufficiency. Trivial pericardial effusion. There are no echocardiographic indications of cardiac tamponade. Right ventricular systolic pressure estimated to be 38 mmHg. Transmitral diastolic flow velocities suggest diastolic dysfunction (pseudonorm al pattern). Ordering Physician: Terence Kim Referring Physician: ALFRED ARGUETA Performed By: Chasity Encinas, ERVIN
== END | disposition home or self-care (01) ==
LOC: CVS 09:45
PROVIDERS: PCP Internal Medicine; Referring Provider Internal Medicine Cardiovascular Disease; Visit Provider Internal Medicine Cardiovascular Disease
DX: I47.1 Supraventricular tachycardia (principal); Z98.890 Other specified postprocedural states
CPT/HCPCS: 93306

== ENCOUNTER → 2023-02-26 | Outpatient (CLI) | payer MEDICARE, SELFPAY ==
[2023-02-26 12:29] LABS: Potassium 4.9 mmol/L (3.5-5.1)
== END | disposition home or self-care (01) ==
LOC: LABSPEC 12:03
PROVIDERS: PCP Internal Medicine; Referring Provider Internal Medicine; Visit Provider Internal Medicine
DX: R73.01 Impaired fasting glucose (principal)
CPT/HCPCS: 84132

== ENCOUNTER → 2023-04-13 | Outpatient (CLI) | payer MEDICARE, SELFPAY ==
--- NOTE | 2023-04-13 15:08 | BI_ITS ---
MAMMOGRAPHY - BILATERAL SCREENING REASON FOR EXAM: Female, 88 years old. Routine annual screening examination. PERTINENT HISTORY: Sister with breast cancer. Remote history of bilateral stereotactic biopsies. TECHNIQUE: Digital bilateral breast viviana (3D mammographic acquisition) in the CC and MLO projections. 2-D mediolateral oblique (MLO) and craniocaudad (CC) views of both breasts were obtained. CAD: Full Field Digital Mammography with Computer Added Detection was performed. COMPARISON: Mammogram from 02/25/2022, 07/27/2018. FINDINGS: Breast Composition: There are scattered areas of fibroglandular density. There are no dominant masses or suspicious calcifications. Stable small benign-appearing bilateral axillary lymph nodes. Stable biopsy markers in the bilateral breasts. No other significant abnormalities are identified. There has been no significant change since the prior study. BI/SCRN MAMM (CAD)W/VIVIANA BILAT IMPRESSION: Stable bilateral screening mammogram. Yearly follow-up mammogram recommended. (A) ASSESSMENT CATEGORY: BIRADS Category 2: Benign. A letter regarding these results will be sent to the patient by the facility within 30 days. Approximately 10% of breast cancers are not detected by mammography. A normal mammogram should not delay biopsy of a clinically suspicious abnormality. Electronically Signed: [place] Shaffer DO at 12:24 EDT ,
== END | disposition home or self-care (01) ==
LOC: OPBI 15:06
PROVIDERS: PCP Internal Medicine; Referring Provider Internal Medicine; Visit Provider Internal Medicine
DX: Z12.31 Encounter for screening mammogram for malignant neoplasm of breast (principal); Z80.3 Family history of malignant neoplasm of breast
CPT/HCPCS: 77063; 77067

== ENCOUNTER 2024-04-07 14:15 | Emergency (ER) | payer MEDICARE, SELFPAY ==
[2024-04-07 14:15] VITALS: BP 145/88; PULSE 88; RESP 20; TEMP 36.1; O2SAT 97
--- NOTE | 2024-04-07 15:06 | CT_ITS ---
STUDY: CT BRAIN WITHOUT CONTRAST REASON FOR EXAM: Female, 89 years old. Fall RADIATION DOSAGE (If Supplied By Facility): CTDIvol = ( 44.99 ) mGy, DLP = ( 745.49 ) mGycm TECHNIQUE: Transaxial CT imaging of the brain was performed without administration of intravenous contrast material. Individualized dose optimization techniques were used for this CT. COMPARISON: Comparison is made with prior study dated August 13, 2016. FINDINGS: Small scalp hematoma overlying the right frontal bone. Normal calvarium. There is mild cerebral atrophy with widening of the extra-axial spaces and ventricular dilatation. There are areas of decreased attenuation within the white matter tracts of the supratentorial brain, consistent with microvascular disease changes. Normal basal ganglia and thalami. Normal brainstem. Normal cerebellum. There is no intracranial hemorrhage. There are no findings of an acute ischemic infarction. Atherosclerotic calcification of the vertebral arteries and cavernous portions of the internal carotid arteries bilaterally. Normal visualized paranasal sinuses. CT/Brain/Head without Contrast IMPRESSION: Chronic involutional changes of the brain. Small scalp hematoma overlying the right frontal bone. Electronically Signed: Adrián Devries MD at 15:42 EDT ,
--- NOTE | 2024-04-07 15:08 | ED.VIS.FALL ---
HPI HPI - Fall History of Present Illness Chief Complaint: Fall Informant: patient Occured/Mechanism Occurred: Today Narrative Narrative: Patient presents today after a fall. She was trying to carry her trash and caught her foot on the step causing her to fall. She has hematoma to her right forehead, laceration to her right elbow, and hematoma to her right lower leg. She did not lose consciousness. She does take baby aspirin. She was able to ambulate after the fall and denies hip pain. Her last tetanus update was in 2014. [facility] Medical History (Updated 04/07/24 @ 16:[address] Roxi Oconnor MD) Contact with or suspected exposure to other viral communicable disease Vaginal vault prolapse Cystocele, midline Wears dentures Wears glasses Post-menopausal Cancer Arthritis Anemia Restless legs Hypertension Gastric reflux History of stress test History of echocardiogram History of atrial fibrillation Non-rheumatic mitral regurgitation History of mitral valve disorder Nonrheumatic mitral (valve) prolapse Hyperlipidemia Chronic fatigue syndrome History of pleural effusion Paroxysmal atrial tachycardia Home Medications ?Medication ?Instructions ?Recorded ?Last Taken ?Type aspirin 81 mg chewable tablet 81 mg PO DAILY@0800 /03/1010/16/21 History mecobalamin (vitamin B12) 10,000 10,000 mcg IM MONTHLY 12/10/20 10/18/21 History mcg solution for injection amlodipine 5 mg tablet 5 mg PO DAILY 10/14/21 10/21/21 07:00 History cholecalciferol (vitamin D3) 25 25 mcg PO DAILY 10/14/21 10/18/21 History mcg (1,000 unit) capsule (Vitamin D3) multivitamin 1 tab PO DAILY 10/14/21 10/18/21 History amoxicillin 500 mg tablet 2,000 mg (4 x 500 mg) PO .COMPLEX 08/17/23 Unknown Rx #4 tabs losartan 50 mg tablet (Cozaar) 50 mg PO BID #180 tabs 10/02/23 Unknown Rx metoprolol tartrate 50 mg tablet 50 mg PO BID #180 tabs 02/23/24 Unknown Rx (Lopressor) Allergy/AdvReac Type Severity Reaction Status Date / Time Latex, Natural Rubber Allergy Hives Verified 11/17/23 14:01 Sulfa (Sulfonamide Allergy Hives Verified 11/17/23 14:01 Antibiotics) Family History Brother CAD (coronary artery disease) Hx of CABG Brother History of permanent cardiac pacemaker placement Surgical History History of bladder surgery Hx of colonoscopy Hx of bilateral cataract extraction Hx of hysterectomy Hx laparoscopic cholecystectomy Hx of appendectomy History of mitral valve repair (~02/07/11) Social History Smoking Status: Never smoker alcohol intake: never substance use type: does not use ROS ROS ED Constitutional Constitutional ED: Denies chills or fever(s) Eyes Eyes: Denies change in vision or discharge from eye(s) ENT ENT ED: Denies discharge from eye(s), rhinorrhea or sore throat Cardiovascular Cardiovascular: Denies chest pain or palpitations Respiratory/Chest Respiratory/Chest: Denies cough or dyspnea Gastrointestinal Gastrointestinal: Denies abdominal pain, nausea or vomiting Musculoskeletal Musculoskeletal: Reports extremity pain; Denies back pain Integumentary Reports other Details: Hematoma to forehead and leg. Laceration to right elbow. ; Denies Abrasions or rash Neurologic Neurologic: Denies headache(s) or weakness Psychiatric Psychiatric: Denies anxiety or depression Endocrine Endocrinology: Denies polydipsia or polyuria Allergic/Immunologic Allergic/Immunologic ED: Denies lip swelling or urticaria EXAM Physical Exam Const Vital Signs: 04/07/24 14:15 04/07/24 16:15 Temperature 96.9 F L Temperature Source Temporal Pulse Rate 88 81 Respiratory Rate 20 H 16 Blood Pressure 145/88 H 158/93 H Blood Pressure Mean 107 114 Pulse Ox 97 98 Oxygen Delivery Method Room Air Room Air Positive well nourished and well developed General Appearance ED: well developed HEENT Reports normocephalic HEENT Narrative: Hematoma to the right forehead. No laceration. Eyes PERRL and EOMs intact bilaterally Neck full ROM Chest Wall inspection of chest normal and palpation of chest normal Resp normal respiratory effort and clear to auscultation bilaterally Cardio regular rate and regular rhythm GI non-tender Palpation: soft Extremity Extremity Narrative: 2 small skin tears noted on the left thumb, each measuring approximately half a centimeter. Patient has a 2 cm skin tear to the right extensor elbow as well as a 5 cm full-thickness laceration to the right extensor elbow. Neuro oriented x3, moves all extremities, no focal motor deficits and no sensory deficits noted Psych mental status grossly normal MDM MDM MDM Narrative Medical decision making narrative: Patient sent for CT scan of the head to evaluate for any acute intracranial bleed. X-ray of the right elbow and right tib-fib obtained to evaluate for any underlying bony injury. Tetanus update provided. The full-thickness laceration on the extensor elbow will require suture repair. Radiography Diagnostic Testing: Clinical Impression(s) from Imaging Studies Brain CT 04/07/24 15:06 IMPRESSION: Chronic involutional changes of the brain. Small scalp hematoma overlying the right frontal bone. Electronically Signed: Adrián Devries MD at 15:42 EDT , Elbow X-Ray 04/07/24 15:25 IMPRESSION: Normal x-ray examination of the elbow. Electronically Signed: George Brink MD at 16:40 EDT , Tibia/Fibula X-Ray 04/07/24 15:25 IMPRESSION: No fracture or dislocation. Electronically Signed: George Brink MD at 16:39 EDT , Treatment and Re-Evaluation Narrative: Right elbow laceration is anesthetized with 5 cc 1% lidocaine. Wound is thoroughly cleansed and irrigated. 6 simple interrupted sutures of 5-0 nylon are placed across the wound. Bleeding is well-controlled. The skin tears noted to the extensor right elbow as well as to the left thumb are cleansed and sealed with Dermabond. Right elbow x-ray per my interpretation reveals no acute bony injury. Radiology interpretation reviewed and agrees. Right tib-fib x-ray per my interpretation reveals no acute fracture. Radiology interpretation reviewed and agrees. CT scan of the head reveals chronic involutional changes with a small scalp hematoma overlying the right frontal bone. Test results discussed with the patient. She will have sutures removed in 7 to 10 days. Wound care discussed. Anton wrap applied to the right mckeon to help with hematoma reabsorption. Discharge Plan Triage Chief Complaint: Fall ED Provider: Roxi Oconnor Dx/Rx/DC Orders Clinical Impression: Fall, Hematoma of frontal scalp, Laceration of upper extremity, Contusion of right elbow, Hematoma of right lower extremity Instructions: ED Scalp Contusion, ED Hematoma, ED Laceration Extremity Prescriptions: No Action mecobalamin (vitamin B12) 10,000 mcg recon soln 10,000 mcg IM MONTHLY amlodipine 5 mg tablet 5 mg PO DAILY aspirin 81 MG tablet,chewable 81 mg PO DAILY@0800 multivitamin Tablet 1 tab PO DAILY cholecalciferol (vitamin D3) [Vitamin D3] 25 mcg (1,000 unit) Capsule 25 mcg PO DAILY amoxicillin 500 mg tablet 2,000 mg PO .COMPLEX Qty: 4 3RF Rx Instructions: 2,000 mg orally take 4 tabs by mouth one hour prior to dental procedure; losartan [Cozaar] 50 mg tablet 50 mg PO BID Qty: 180 3RF metoprolol tartrate [Lopressor] 50 mg tablet 50 mg PO BID Qty: 180 3RF Primary Care Provider: Kenyetta Linares Referrals: Kenyetta Linares DO [Primary Care Provider] - 7 Days for suture removal Print Language: Latvian Disposition Disposition: Home, Self Care
[2024-04-07] MEDS: Diphth,Pertuss(Acell),Tet Vac 0.5 ML Vial IM (15:19)
[2024-04-07] MEDS: Lidocaine 1% (20 ml mdv) 20 ML Vial INFILT (15:19)
--- NOTE | 2024-04-07 15:25 | RAD_ITS ---
STUDY: X-RAY - RIGHT ELBOW REASON FOR EXAM: Female, 89 years old. fall TECHNIQUE: 3 view(s) of the elbow. COMPARISON: None. FINDINGS: Normal visualized humerus, radius and ulna. Normal radiocapitellar and ulnotrochlear articulations. The soft tissue structures are unremarkable. There is no demonstrated fracture. RAD/Elbow min 3 Views IMPRESSION: Normal x-ray examination of the elbow. Electronically Signed: George Brink MD at 16:40 EDT ,
--- NOTE | 2024-04-07 15:25 | RAD_ITS ---
STUDY: X-RAY - RIGHT TIBIA AND FIBULA REASON FOR EXAM: Female, 89 years old. fall TECHNIQUE: 2 view(s) of the tibia and fibula were obtained. COMPARISON: None. FINDINGS: Normal visualized tibia. Normal visualized fibula. There is no demonstrated acute fracture. There is non-specific soft tissue swelling/bruising along the lateral anterior calf. RAD/Tibia & Fibula 2 Views IMPRESSION: No fracture or dislocation. Electronically Signed: George Brink MD at 16:39 EDT ,
[2024-04-07 16:15] VITALS: BP 158/93; PULSE 81; RESP 16; O2SAT 98
[2024-04-07 16:50] VITALS: BP 158/93; PULSE 88; RESP 16; TEMP 36.7; O2SAT 99
== END 2024-04-07 16:52 | disposition home or self-care (01) ==
PROVIDERS: Emergency Provider Emergency Medicine; PCP Internal Medicine; Visit Provider Emergency Medicine
DX: S00.03XA Contusion of scalp, initial encounter (principal); I48.91 Unspecified atrial fibrillation; S50.01XA Contusion of right elbow, initial encounter; S51.011A Laceration without foreign body of right elbow, initial encounter; Z23 Encounter for immunization; Z90.49 Acquired absence of other specified parts of digestive tract; Z90.710 Acquired absence of both cervix and uterus; Z95.0 Presence of cardiac pacemaker; I10 Essential (primary) hypertension; K21.9 Gastro-esophageal reflux disease without esophagitis; W19.XXXA Unspecified fall, initial encounter
CPT/HCPCS: 12002; 70450; 73080; 73590; 90715; 99283

== ENCOUNTER → 2024-04-18 | Outpatient (CLI) | payer MEDICARE, SELFPAY ==
[2024-04-18 12:24] LABS: Absolute Neutrophil Count 6.8 X10^3/uL (2.0-7.7); Hematocrit 37.4 % (37-47); Hemoglobin 12.3 g/dL (12.0-15.0); Mean Corp Hgb Conc 32.9 g/dL (32-36); Mean Corpuscular Hgb 32.3 pg (27.0-32.0); Mean Corpuscular Volume 98.2 fL (81-99); Platelet Count 320 K/mm3 (150-450); Red Blood Count 3.81 M/mm3 (4.2-5.4); White Blood Count 9.5 K/mm3 (4.4-11.0)
[2024-04-18 12:35] LABS: ALB/GLOB Ratio 1.3 RATIO (0.9-2.4); AST(SGOT) 15 U/L (15-37); Alanine Aminotransfer ALT/SGPT 10 U/L (13-56); Albumin, Serum 3.8 g/dL (3.2-5.0); Alkaline Phosphatase 100 U/L (45-117); Anion Gap 5 (5-15); BUN 17 mg/dL (7-18); BUN/Creat Ratio 18.2 RATIO (10-20); Calcium,Total 9.7 mg/dL (8.5-10.1); Chloride 106 mmol/L (98-107); Creatinine, Serum 0.93 mg/dL (0.55-1.02); EST Glomerular Filtration Rate 60 mL/min (>60); Est Glom Filt Rate - Afr Amer 73 mL/min (>60); Globulin 2.9 g/dL (2.2-4.2); Glucose 103 mg/dL (74-106); Protein, Total 6.7 g/dL (6.4-8.2); Sodium Level 139 mmol/L (136-145)
[2024-04-18 12:41] LABS: Absolute Lymphocyte Count 1.54 X10^3/uL (0.83-4.51); Basophil# 0.06 X10^3/uL; Basophil% 0.6 % (0-1); Eosinophil# 0.32 X10^3/uL; Eosinophils% 3.2 % (0-5); Lymphocyte # 1.54 X10^3/ul (0.83-4.51); Lymphocyte % 15.4 % (19-41); Mean Platelet Vol. 9.7 fl (6.2-12.0); Monocyte# 0.79 X10^3/uL; Monocyte% 7.9 % (0-10); NRBC Flagged by Analyzer 0 % (0-5); Neutrophil # 7.19 X10^3/uL (2.7-7.7); Neutrophil % 72.2 % (47-70); RBC Distribution Width CV 13.2 % (11.6-14.6); RBC Distribution Width SD 47.2 fl (35.1-43.9)
== END | disposition home or self-care (01) ==
LOC: LABSPEC 12:06
PROVIDERS: PCP Internal Medicine; Visit Provider Internal Medicine
DX: R22.41 Localized swelling, mass and lump, right lower limb (principal)
CPT/HCPCS: 80053; 85025

== ENCOUNTER → 2024-04-18 | Outpatient (CLI) | payer MEDICARE, SELFPAY ==
--- NOTE | 2024-04-18 13:07 | VDLE_ITS ---
Reason For Study: Swelling RLE RIGHT GSV is normal. CFV is compressible, spontaneous, phasic, competent and demonstrates normal augmentation. FV is compressible, spontaneous, phasic, competent and demonstrates normal augmentation. POP V is compressible, spontaneous, phasic, competent and demonstrates normal augmentation. T/P Trunk is compressible. PTV is compressible. RT PerV is compressible. Procedure This is a venous duplex using B-mode, color flow and spectral Doppler. Exam performed in department. A preliminary report was called and/or faxed to Dr. Linares. VL/Venous Duplex US, Unilateral Interpretation Summary There is no evidence of right lower extremity deep vein thrombosis. Right great saphenous vein appears patent and compressible segmentally. Ordering Physician: Kenyetta Linares Referring Physician: Kenyetta Linares Performed By: Dorcas Oconnor, JANINE, RVT
== END | disposition home or self-care (01) ==
LOC: CVS 13:00
PROVIDERS: PCP Internal Medicine; Referring Provider Internal Medicine; Visit Provider Internal Medicine
DX: R22.41 Localized swelling, mass and lump, right lower limb (principal)
CPT/HCPCS: 93971

== ENCOUNTER → 2024-08-24 | Outpatient (CLI) | payer MEDICARE, SELFPAY ==
--- NOTE | 2024-08-24 09:50 | BI_ITS ---
MAMMOGRAPHY - BILATERAL SCREENING REASON FOR EXAM: Female, 89 years old. Routine annual screening examination. PERTINENT HISTORY: Sister with breast cancer. Remote bilateral stereotactic breast biopsies. TECHNIQUE: Digital bilateral breast viviana (3D mammographic acquisition) in the CC and MLO projections. 2-D mediolateral oblique (MLO) and craniocaudad (CC) views of both breasts were obtained. CAD: Full Field Digital Mammography with Computer Added Detection was performed. COMPARISON: Comparison is made with prior study of April 13, 2023 and February 25, 2022. FINDINGS: Breast Composition: There are scattered areas of fibroglandular density. There are no dominant masses or suspicious calcifications. A tissue clip marker is once again seen in the mid retroareolar region of the left breast as well as in the mid deep portion of the right breast. Stable small benign appearing bilateral axillary lymph nodes. No other significant abnormalities are identified. There has been no significant change since the prior study. BI/SCRN MAMM (CAD)W/VIVIANA BILAT IMPRESSION: Stable bilateral screening mammogram. Yearly follow-up mammogram recommended. (A) ASSESSMENT CATEGORY: BIRADS Category 2: Benign. A letter regarding these results will be sent to the patient by the facility within 30 days. Approximately 10% of breast cancers are not detected by mammography. A normal mammogram should not delay biopsy of a clinically suspicious abnormality. [id number] Electronically Signed: Adrián Devries MD at 11:32 EDT ,
--- NOTE | 2024-08-24 09:56 | BD_ITS ---
STUDY: DUAL ENERGY X-RAY ABSORPTIOMETRY / DXA REASON FOR EXAM: Female, 89 years old. 627.8Menopausal postmenopausal BONE DENSITY REASON FOR EXAM TECHNIQUE: Bone Mineral Density (BMD) measurements of lumbar spine and bilateral hips were obtained. COMPARISON: Comparison is made with prior study February 25, 2022. FINDINGS: Lumbar Spine (L1-L4): g/cm2 (0.908) / T-score (-1.3) / Z-score (1.6) Findings are suggestive of osteopenia with a low fracture risk. Left Femur Total: g/cm2 (0.730) / T-score (-1.7) / Z-score (0.6) Left Femoral Neck: g/cm2 (0.636) / T-score (-1.9) / Z-score (0.6) Right Femur Total: g/cm2 (0.702) / T-score (-2.0) / Z-score (0.4) Right Femoral Neck: g/cm2 (0.656) / T-score (-1.7) / Z-score (0.8) The T-Scores on the most recent prior examination were: Lumbar Spine (L1-L4): There has been improvement of bone density since the previous examination. Left Femur Total: which represents a worsening of 3.2%. Right Femur Total: which represents a worsening of 4.2%. BD/Dexa Bone Density Study IMPRESSION: The patient is considered osteopenic as outlined below according to World [place] Organization (WHO) criteria with a moderate fracture risk. There has been worsening of bone density since the previous examination. Reference Information: The T-score is the number of standard deviations above or below the standard which is normal for young adults at their peak bone mineral density. The World Health Organization (WHO) interprets the T-scores as follows: Above -1 Normal bone density Between -1 and -2.5 Osteopenia Equal to / or below -2.5 Osteoporosis As a practical clinical guideline, osteopenia may be graded as follows: Mild -1 through -1.5 Moderate -1.6 through -2.0 Severe -2.1 through -2.4 The Z-score is the number of standard deviations above or below age-matched controls. A Z-score of less than -1.5 would be considered abnormal. References: 1. NIH Osteoporosis and Related Bone Diseases www osteo.org 2. International Society for Clinical Densitometry www iscd.org 3. National Osteoporosis Foundation www nof.org Electronically Signed: Adrián Devries MD at 12:36 EST ,
== END | disposition home or self-care (01) ==
LOC: OPBD 09:50
PROVIDERS: PCP Internal Medicine; Referring Provider Internal Medicine; Visit Provider Internal Medicine
DX: Z12.31 Encounter for screening mammogram for malignant neoplasm of breast (principal); Z78.0 Asymptomatic menopausal state
CPT/HCPCS: 77063; 77067; 77080

== ENCOUNTER → 2024-10-27 | Outpatient (CLI) | payer MEDICARE, SELFPAY ==
--- NOTE | 2024-10-27 14:43 | CDU_ITS ---
Reason For Study: Bilateral Carotid Stenosis Rt. Velocities/BP Lt. Velocities/BP Prox CCA 66.6/12.7 cm/sec. Prox CCA 76.5/11.7 cm/sec. Mid CCA 49.0/8.4 cm/sec. Mid CCA 56.3/14.7 cm/sec. Dist CCA 47.2/13.0 cm/sec. Dist CCA 45.9/12.8 cm/sec. Prox ICA 46.5/15.9 cm/sec. Prox ICA 45.9/12.8 cm/sec. Mid ICA 70.7/16.3 cm/sec. Mid ICA 79.8/22.6 cm/sec. Dist ICA 77.8/25.8 cm/sec. Dist ICA 74.0/20.2 cm/sec. Rt. ICA/CCA = 1.6. Lt. ICA/CCA = 1.4. Prox ECA 68.3/17.3 cm/sec. Prox ECA 78.7/16.0 cm/sec. Rt. Vert. 46.8/13.8 cm/sec. Lt. Vert. 38.1/11.8 cm/sec. Right Extracranial There is intimal thickening but no significant atherosclerotic plaque noted in the right common carotid artery. There is heterogeneous, irregular atherosclerotic plaque noted in the right internal carotid artery. There is heterogeneous, irregular atherosclerotic plaque noted in the right external carotid artery. Antegrade flow is noted in the right vertebral artery. Left Extracranial There is intimal thickening but no significant atherosclerotic plaque noted in the left common carotid artery. There is heterogeneous, irregular atherosclerotic plaque noted in the left internal carotid artery. There is heterogeneous, irregular atherosclerotic plaque noted in the left external carotid artery. Antegrade flow is noted in the left vertebral artery. Procedure Carotid Duplex 18402. This is a Carotid Duplex examination using B-mode, color flow and specral Doppler. The exam was diagnostic. Exam performed in department. VL/Carotid Duplex Ultrasound Interpretation Summary Mild (<50%) stenosis right extracranial internal carotid. Mild (<50%) stenosis left extracranial internal carotid. Patent and antegrade vertebrals bilaterally. Ordering Physician: Kenyetta Linares Referring Physician: Kenyetta Linares Performed By: Cosmo Lira RVT
== END | disposition home or self-care (01) ==
LOC: CVS 14:43
PROVIDERS: PCP Internal Medicine; Referring Provider Internal Medicine; Visit Provider Internal Medicine
DX: I65.23 Occlusion and stenosis of bilateral carotid arteries (principal)
CPT/HCPCS: 93880

== ENCOUNTER → 2025-03-21 | Outpatient (CLI) | payer MEDICARE, SELFPAY ==
--- NOTE | 2025-03-21 10:40 | ART_ITS ---
Reason For Study Procedure A bilateral lower extremity continuous wave Doppler with analog waveform analysis,segmental pressures,and ankle brachial indexes without exercise. Left Segmental Pressures Left brachial= 140mmHg. Left posterior tibial artery = 168mmHg. Left dorsalis pedis artery = 158mmHg. The left posterior tibial artery waveforms are triphasic. The left dorsalis pedis waveforms are triphasic. Right Segmental Pressures Right brachial= 141mmHg. Right posterior tibial artery = 149mmHg. Right dorsalis pedis artery = 158mmHg. The right posterior tibial artery waveforms are triphasic. The right dorsalis pedis waveforms are triphasic. Indices The right resting ankle brachial index is 1.12. The right ankle brachial index by the posterior tibial artery is 1.06. The right ankle brachial index by the dorsalis pedis is 1.12. The left resting ankle brachial index is 1.19. The left ankle brachial index by the posterior tibial artery is 1.19. The left ankle brachial index by the dorsalis pedis is 1.12. VL/Lower Ext Art Exam w/ Exercise Interpretation Summary Right MONY 1.12, normal. Doppler/PVR waveforms of the right leg normal at rest. Left MONY 1.19, normal. Doppler/PVR waveforms of the left leg normal at rest. Ordering Physician: Milagros^Alfred^^^ Referring Physician: ALFRED ARGUETA MD Performed By: Lucretia Foss RVT, RDCS
== END | disposition home or self-care (01) ==
LOC: CVS 10:39
PROVIDERS: PCP Internal Medicine; Referring Provider Internal Medicine; Visit Provider Internal Medicine
DX: I73.9 Peripheral vascular disease, unspecified (principal)
CPT/HCPCS: 93924

== ENCOUNTER → 2025-07-10 | Outpatient (CLI) | payer MEDICARE, SELFPAY ==
[2025-07-10 12:09] LABS: Hematocrit 39.9 % (37-47); Hemoglobin 13.5 g/dL (12.0-15.0); Immature Granulocytes Count 0.030 X10^3/uL (0.0-0.0); Mean Corp Hgb Conc 33.8 g/dL (32-36); Mean Corpuscular Volume 97.1 fL (81-99); Mean Platelet Vol. 9.9 fl (6.2-12.0); NRBC Flagged by Analyzer 0 % (0-5); Platelet Count 234 K/mm3 (150-450); RBC Distribution Width CV 13.2 % (11.6-14.6); RBC Distribution Width SD 46.8 fl (35.1-43.9); Red Blood Count 4.11 M/mm3 (4.2-5.4); White Blood Count 9.3 K/mm3 (4.4-11.0)
[2025-07-10 12:50] LABS: Creatinine, Urine (random) 228.00 mg/dL (28.00-217.00); Microalbumin,Random Urine 363.0 mg/L (<20 mg/L)
[2025-07-10 13:10] LABS: AST(SGOT) 18 U/L (<=31); Alanine Aminotransfer ALT/SGPT 7 U/L (<=34); Albumin, Serum 4.5 g/dL (3.4-4.8); Alkaline Phosphatase 70 U/L (35-104); Anion Gap 12 (5-15); BUN 17 mg/dL (4-19); BUN/Creat Ratio 17.2 RATIO (10-20); Calcium,Total 10.1 mg/dL (7.6-11.0); Carbon Dioxide 22.2 mmol/L (21.0-32.0); Chloride 104 mmol/L (98-108); Cholesterol 109 mg/dL (<=200); Globulin 2.5 g/dL (2.2-4.2); Glucose 102 mg/dL (70-99); Low Density Lipoprotein Calc. 30 mg/dL; Potassium 4.7 mmol/L (3.3-5.1); Triglycerides 84 mg/dL; Very Low Density Lipoprotein 17 mg/dL (5-40); Vitamin D,25 Hydroxy 46.3 ng/mL (30-100); cholesterol:hdl ratio screen 1.76
== END | disposition home or self-care (01) ==
LOC: MTLAB 10:20
PROVIDERS: PCP Internal Medicine; Referring Provider Internal Medicine; Visit Provider Internal Medicine
DX: E78.5 Hyperlipidemia, unspecified (principal); I10 Essential (primary) hypertension; E55.9 Vitamin D deficiency, unspecified; R73.01 Impaired fasting glucose
CPT/HCPCS: 36415; 80053; 80061; 82043; 82306; 82570; 84443; 85025

== ENCOUNTER → 2025-08-25 | Outpatient (CLI) | payer MEDICARE, SELFPAY ==
--- NOTE | 2025-08-25 10:05 | BI_ITS ---
EXAM: BI/SCRN MAMM (CAD)W/VIVIANA BILAT
== END | disposition home or self-care (01) ==
LOC: OPBI 10:03
PROVIDERS: PCP Internal Medicine; Referring Provider Internal Medicine; Visit Provider Internal Medicine
DX: Z12.31 Encounter for screening mammogram for malignant neoplasm of breast (principal)
CPT/HCPCS: 77063; 77067

== ENCOUNTER → 2025-09-14 | Outpatient (CLI) | payer MEDICARE, SELFPAY ==
--- NOTE | 2025-09-14 12:46 | ECHOD_ITS ---
Reason For Study Reason For Study: MITRAL VALVE PROLAPSE Procedure This was a 2D Doppler, Color Flow transthoracic echocardiogram. Exam performed in department. Left Ventricle Normal size and thickness. The left ventricular ejection fraction is 55 %. Stage 3 diastolic dysfunction. Right Ventricle Normal right ventricle. Atria The left atrium is mildly enlarged. Normal right atrium. Mitral Valve Mitral valve annuloplasty ring. Moderate mitral valve regurgitation. Tricuspid Valve Trivial tricuspid valve insufficiency. Right ventricular systolic pressure estimated to be 36 mmHg. Aortic Valve Trisinus/trileaflet aortic valve. Trivial aortic valve insufficiency. Pulmonic Valve The pulmonic valve is not well visualized. Trivial pulmonic valve insufficiency. Great Vessels Normal sized aortic root. Pericardium/Pleural No pericardial effusion. MMode/2D Measurements & Calculations LVIDd: 4.6 cm IVSd: 0.68 cm asc Aorta Diam: 3.4 cm LVIDs: 2.9 cm LVPWd: 0.83 cm FS: 38.0 % LAV(MOD-bp): 51.4 ml LVAd ap4: 24.4 cm2 LVAd ap2: 25.1 cm2 LAV(MOD-bp) Indexed: 28.8 ml/m2 LVLd ap4: 7.1 cm LVLd ap2: 7.5 cm LAV(MOD-sp2): 42.7 ml EDV(MOD-sp4): 68.6 ml EDV(MOD-sp2): 70.5 ml LAV(MOD-sp4): 60.6 ml EDV(sp4-el): 71.3 ml EDV(sp2-el): 71.9 ml LVAs ap4: 16.0 cm2 LVAs ap2: 15.6 cm2 LVLs ap4: 6.4 cm LVLs ap2: 6.5 cm ESV(MOD-sp4): 35.2 ml ESV(MOD-sp2): 30.9 ml ESV(sp4-el): 34.4 ml ESV(sp2-el): 31.7 ml EF(MOD-sp4): 48.7 % EF(MOD-sp2): 56.1 % EF(sp4-el): 51.8 % SV(MOD-sp4): 33.4 ml SV(MOD-sp2): 39.5 ml SV(sp4-el): 37.0 ml SI(MOD-sp4): 18.8 ml/m2 SI(MOD-sp2): 22.2 ml/m2 LA A4 area: 20.1 cm2 LA dimension(2D): 4.4 cm RA A4 area: 14.2 cm2 TAPSE: 1.6 cm Time Measurements MV dec time: 0.29 sec Doppler Measurements & Calculations MV E max vito: 155.2 cm/sec Lat Peak E' Vito: 8.8 cm/sec Med Peak E' Vito: 7.6 cm/sec MV A max vito: 78.1 cm/sec E/E' lat: 17.6 E/E' med: 20.6 MV E/A: 2.0 MV V2 max: 160.4 cm/sec Ao V2 max: 143.8 cm/sec MV max P.3 mmHg MV dec slope: 535.9 cm/sec2 Ao max P.3 mmHg MV V2 mean: 89.1 cm/sec Ao V2 mean: 102.3 cm/sec MV mean P.7 mmHg Ao mean P.8 mmHg MV V2 VTI: 39.4 cm Ao V2 VTI: 32.7 cm AV (velocity ratio): 0.46 LV V1 max: 67.2 cm/sec MR max vito: 546.5 cm/sec PA V2 max: 60.7 cm/sec LV V1 max P.8 mmHg MR max P.5 mmHg LV V1 mean P.92 mmHg MR mean vito: 468.9 cm/sec LV V1 mean: 45.7 cm/sec MR mean P.4 mmHg LV V1 VTI: 15.0 cm MR VTI: 201.9 cm PI end-d vito: 123.4 cm/sec TR max vito: 280.1 cm/sec TR max P.4 mmHg ECHO/Echo Complete Interpretation Summary The left ventricular ejection fraction is 55 %. Stage 3 diastolic dysfunction. The left atrium is mildly enlarged. Mitral valve annuloplasty ring. Moderate mitral valve regurgitation. Ordering Physician: Antoni Oconnor Referring Physician: Kenyetta Linares Performed By: Loi Hurtado RDCS
== END | disposition home or self-care (01) ==
LOC: CVS 12:43
PROVIDERS: PCP Internal Medicine; Referring Provider Nurse Practitioner Family; Visit Provider Nurse Practitioner Family
DX: I34.0 Nonrheumatic mitral (valve) insufficiency (principal); I34.1 Nonrheumatic mitral (valve) prolapse; Z98.890 Other specified postprocedural states
CPT/HCPCS: 93306